=== PATIENT | female | born 1995 ===

== ENCOUNTER 2020-11-09 06:13 | Inpatient (IN) | payer OTHER ==
[~2020-11-09] VITALS: Ht 167.6 cm; Wt 100.9 kg
[2020-11-09] VITALS (42 sets, daily range): BP systolic 94–136; BP diastolic 53–90; PULSE 71–125; TEMP 97.6–98.9
--- NOTE | 2020-11-09 06:40 | NUR ---
Presents to L&D for scheduled induction of labor. Ambulatory to unit. Accompanied by spouse.
[2020-11-09 07:12] LABS: BASO % 0.1 % (0.0-2.0); GRAN # 9.5 (1.4-6.5); GRAN % 83.4 % (42.2-75.2); HEMATOCRIT 37.3 % (37.0-47.0); HEMOGLOBIN 13.1 g/dl (12.5-16.0); LYMPH # 1.3 (1.2-3.4); LYMPH % 11.8 % (20.0-51.0); MEAN CELL VOLUME 89 fl (80.0-100.0); MEAN CORPUSCULAR HEMOGLOBIN 31 pg (27.0-31.0); MEAN CORPUSCULAR HGB CONC 35 g/dl (33.0-37.0); MEAN PLATELET VOLUME 12.6 fl (7.4-10.4); MONO # 0.4 (0.1-0.6); MONO % 3.4 % (1.7-9.3); PLATELET COUNT 110 K/mm3 (130-400); RED BLOOD COUNT 4.21 M/mm3 (4.10-5.30); REDCELL DISTRIBUTION WIDTH-CV 13.2 % (11.5-14.5)
--- NOTE | 2020-11-09 07:15 | NUR ---
Pit start @ 2mU/min @ this time, after noting Category I reactive strip.
--- NOTE | 2020-11-09 07:22 | NUR ---
Repositioned to sitting upright on birthing ball. Repositioning of US required, difficulty tracing FHT during this time.
[2020-11-09] MEDS ORDERED: SYNTHROID 0.0.025 MG (08:01)
[2020-11-09] MEDS ORDERED: PREDNISONE20 MG PO (08:02)
[2020-11-09] MEDS ORDERED: PREDNISONE20 MG (08:02)
[2020-11-09] MEDS ORDERED: OSCAL 500 TAB500 MG PO (08:03)
[2020-11-09] MEDS ORDERED: PRENATAL TABLET PO (08:03)
--- NOTE | 2020-11-09 08:45 | NUR ---
here for evaluation, does not break water @ this time. Discusses with patient platelet count, and he will likely come back in an hour to break water. Patient et spouse verbalize understanding.
--- NOTE | 2020-11-09 09:10 | NUR ---
Repositioned from birthing ball to left lateral in bed, after noting 3 consecutive late decelerations. 200 mL LR bolus administered.
--- NOTE | 2020-11-09 09:55 | NUR ---
Requests epidural @ this time. TECHNOLOGY ANALYST notified.
--- NOTE | 2020-11-09 10:15 | NUR ---
Sitting upright at side of bed in preparation for epidural placement. SRINIVASA Jackson, here. 1021: Local anesthetic administered by BARGE CAPTAIN. 1022: Epidural space obtained by BARGE CAPTAIN. 1023: Single shot dose administered by BARGE CAPTAIN. 1024: Epidural needle out per BARGE CAPTAIN. Note patient tolerates procedure without difficulty.
--- NOTE | 2020-11-09 11:11 | NUR ---
[id number]: Prolonged variable decel noted, begins with patient in right lateral with peanut ball. Pit turned off @ 1110 by this documentation writer. Repeat SVE /- to 0 station. Large amount clear amniotic fluid noted. 1114: updated, aware of prolonged decel, SVE /, pit off, repositioning.
--- NOTE | 2020-11-09 11:34 | NUR ---
Rate of pitocin decreased to 10mU/min @ this time.
--- NOTE | 2020-11-09 11:45 | NUR ---
4051-2160: Prolonged deceleration noted, down to 90 bpm at lowest point. 1138: Repositioned to left lateral. Note, FHT not recovering in this position. Repoisitioned to knee chest @ 1141 with minimal assistance. Note RYNE Cruz, also at bedside for assist. LR bolus begun.
--- NOTE | 2020-11-09 12:10 | NUR ---
Repositioned to left lateral with peanut ball. Note patient c/o feeling lightheaded, nauseated. Will administer ephedrine. This explained to patient. Verbalizes understanding.
--- NOTE | 2020-11-09 12:14 | NUR ---
10 mg Ephedrine IVP administered for patient c/o feeling nauseated, also note hypotensive.
--- NOTE | 2020-11-09 12:19 | NUR ---
Repeat dose Ephedrine 10 mg IVP administered.
--- NOTE | 2020-11-09 12:35 | NUR ---
Repositioned to upright in taras position.
--- NOTE | 2020-11-09 13:45 | NUR ---
Repositioned from left lateral to right lateral with peanut ball.
--- NOTE | 2020-11-09 13:57 | NUR ---
Repositioned from right lateral with peanut ball to modified Welcher's with explanation.
--- NOTE | 2020-11-09 14:13 | NUR ---
here, places IUPC, after noting no cervical change. Explanation to patient, verbalizes understanding.
--- NOTE | 2020-11-09 14:20 | NUR ---
Repositioned left lateral with peanut ball.
--- NOTE | 2020-11-09 14:27 | NUR ---
Repositioned to right lateral with peanut ball.
--- NOTE | 2020-11-09 14:42 | NUR ---
FSE placed by this senior underwriter at this time per Dr.Gros rojo. Explanation to patient. Difficulty getting FSE to work. 1447: Repositioned to knee chest. This senior underwriter et Maye Aguero RN @ bedside intervening. 1452: Pit stopped at this time. 1457: O2 on @ 10L/min per simple face mask.
--- NOTE | 2020-11-09 14:47 | NUR ---
1447-Positioned in knee chest. 1452-Pit stopped @ this time. 1457-O2 on @ 10L/min per simple face mask. 1503- in-house, reviews strip.
--- NOTE | 2020-11-09 14:59 | NUR ---
FSE cord changed out @ this time, as continued difficulty getting it to work. 1503: Pit restart 22 mU/min per verbal order. reviews strip.
--- NOTE | 2020-11-09 15:12 | NUR ---
Patient reports feeling pressure in her bottom with contraction.
--- NOTE | 2020-11-09 15:13 | NUR ---
Repositioned onto back, in for repeat SVE C/0. Room set up for delivery. Nursery nurse notified. RYNE Cruz, remains in room for delivery.
--- NOTE | 2020-11-09 15:17 | NUR ---
Practice push per instruction. Bed broken down following this push. 1521: Push attempt, delivery of head by . 50 second shoulder dystocia noted. Rosiebert's maneuver, suprapubic pressure applied, while performs Tyler maneuver. 1522: Spontaneous vaginal delivery of female infant by . to mother's abdomen, dried stimulated by nursery nurses Barbara Hudson RN, and RYNE Mar. Umbilical cord doubly clamped by , instruction provided to father of baby to cut cord. Cord gases obtained per verbal order. 1528: Spontaneous vaginal delivery of placenta by . Pit bolus begun immediately following. Intact perineum per exam.
--- NOTE | 2020-11-09 18:20 | NUR ---
Report recieved. Ambulating in the halls at this time with in the crib. Updated whiteboard.
[2020-11-10 03:30] VITALS: BP 121/77; PULSE 68; TEMP 97.9
[2020-11-10 07:15] VITALS: BP 133/69; PULSE 81; TEMP 99.2
--- NOTE | 2020-11-10 09:57 | NUR ---
Initial visit; Parents thanked Metal Furniture Repairer for offering congratulations and God's blessings for the of their daughter. Metal Furniture Repairer thanked family for choosing [facility].
[2020-11-10] MEDS ORDERED: IBU600 MG PO (13:07)
[2020-11-10] MEDS ORDERED: PREDNISONE20 MG PO (13:09)
--- NOTE | 2020-11-10 16:47 | NUR ---
1610 DISCHARGE INSTRUCTIONS REVIEWED WITH PATIENT. PATIENT VERBALIZED UNDERSTANDING. 1640 ALL PERSONAL BELONGINGS GATHERED FROM PATIENT ROOM. PATIENT LEFT AMBULATORY AND IN NO APPARENT DISTRESS. PATIENT ACCOMPANIED BY NURSING STAFF AND SPOUSE.
== END 2020-11-10 16:40 | disposition home or self-care (01) | DRG 807 ==
LOC: LDR 06:13 → OB 06:13
PROVIDERS: ADMIT Obstetrics & Gynecology
PROC: 10E0XZZ Delivery of Products of Conception, External Approach (ICD-10-PCS; principal; 2020-11-09)
PROC: 10907ZC Drainage of Amniotic Fluid, Therapeutic from Products of Conception, Via Natural or Artificial Opening (ICD-10-PCS; 2020-11-09)
PROC: 3E033VJ Introduction of Other Hormone into Peripheral Vein, Percutaneous Approach (ICD-10-PCS; 2020-11-09)
DX: O99.12 Other diseases of the blood and blood-forming organs and certain disorders involving the immune mechanism complicating childbirth (principal); Z37.0 Single live birth; D69.6 Thrombocytopenia, unspecified; O99.824 Streptococcus B carrier state complicating childbirth; O99.284 Endocrine, nutritional and metabolic diseases complicating childbirth; E03.9 Hypothyroidism, unspecified; O66.0 Obstructed labor due to shoulder dystocia; Z3A.39 39 weeks gestation of pregnancy; Z79.52 Long term (current) use of systemic steroids
CPT/HCPCS: J2590; J7120; J7512